=== PATIENT | male | born 1985 | race Caucasian/White ===

== ENCOUNTER 2020-03-31 08:37 | Emergency (ER) | payer MEDICAID ==
[~2020-03-31] VITALS: Ht 185.4 cm; Wt 129.8 kg
[2020-03-31 08:53] VITALS: BP 139/87
[2020-03-31] MEDS ORDERED: ketorolac trometh inj. 60 MG/2 ML VIAL IM ONE (09:25)
[2020-03-31] MEDS ORDERED: acetaminophen 325mg tablet PO ONE (09:25)
[2020-03-31] MEDS ORDERED: triamcinolone acetonide 40mg/ml inj IM ONE (09:25)
[2020-03-31] MEDS ORDERED: ACET-812 PO (09:28)
[2020-03-31] MEDS ORDERED: IBUP-1985 PO (09:28)
[2020-03-31] MEDS ORDERED: PRED20TA PO (09:28)
[2020-03-31] MEDS ORDERED: COLC0.6T72 PO (09:28)
== END 2020-03-31 09:58 | disposition home or self-care (01) ==
LOC: ER 08:37
DX: M10.9 Gout, unspecified (principal); F17.200 Nicotine dependence, unspecified, uncomplicated; Z72.89 Other problems related to lifestyle; Z79.899 Other long term (current) drug therapy
CPT/HCPCS: 73630; 96372; 99284; J1885; J3301